=== PATIENT | male | born 1945 | race Caucasian/White ===

== ENCOUNTER 2022-02-13 08:26 | Day surgery (SDC) | payer OTHER, SELFPAY ==
[2022-02-13] VITALS (7 sets, daily range): BP systolic 138–162; BP diastolic 75–87; PULSE 50–70; RESP 16; TEMP 36.2–37; O2SAT 97–100; BMI 26.1
--- NOTE | 2022-02-13 | COLBX_PTH ---
PATIENT: VERONIQUE MOLINA LOC: EN U#:[id number] AGE/SX: 76/M ROOM: RE02/13/[address]: Dr. Basim Dominguez MD : 1945 BED: DIS: 02/13/2022 SPEC #: [id number] RECD: 02/13/22 11:52 STATUS: WILLIAMS PARRFrancisca #: [id number] JEFERSON: 02/13/22 00:[address]: Basim Dominguez DEPT: SURGICAL PATHOLOGY RECD BY: Christian Brock Tissues: Transverse colon Procedures: Surgery Specimen Level IV HEADER OPERATION: Colonoscopy (MAC), polypectomy PRE-OP DIAGNOSIS: History of colonic polyps TISSUE SUBMITTED: Transverse polyp MICROSCOPIC DIAGNOSIS Transverse colon polyp, polypectomy: Fragments of tubular adenoma. MADYSON:homero 02/14/2022 MICROSCOPIC DESCRIPTION Slides are reviewed. GROSS DESCRIPTION Received in fixative is one container labeled with the patient's name and designated transverse polyp. The specimen consists of multiple irregular fragments of light baez soft tissue that in aggregate measure 0.6 x 0.2 x 0.1 cm. The specimen is totally submitted in one cassette. / SJ:rg 02/13/2022 TC:1 CPT: 39805
[2022-02-13] MEDS: Lactated Ringers 1,000 ML 15 ML IV (09:22)
--- NOTE | 2022-02-13 10:20 | HP.PCM_ITS ---
History and Physical Date of Admission: 02/13/22 Date of Service:? 01/21/22 MR#: [id number] Acct: [id number] Name:VERONIQUE LOPEZ Rep #: [id number] : 1945 ? ? Provider: Dr. Basim Dominguez MD Age/Sex:? 76/M ? ? Location: [facility] Status: Signed Intake Vital Signs ? 01/21/2213:37 Height 5 ft 11 in Weight: 192 lb 8 oz BMI 26.8 BP 130/66 H Blood Pressure Location Rt brachial Position Sitting Respiration 17 Pulse 75 Pulse Source Monitor D Temp 97.6 F L Temp Source Temporal Pulse Oximetry (%) 96 Oxygen Delivery Method room air Intake Visit Reasons:?Family HX C-Scope every 3yrs Chief Complaint: Cscope every 3 years, family hx, hx polyps Inspector Filters Required: No Is patient in pain?: No Allergies menthol Allergy (Verified 01/21/22 13:39) unknown Medications hydrochlorothiazide 25 mg tablet 25 mg PO DAILY 01/21/22 [History Confirmed 01/21/22] sertraline 100 mg tablet 100 mg PO DAILY 01/21/22 [History Confirmed 01/21/22] simvastatin 40 mg tablet 40 mg PO DAILY 01/21/22 [History Confirmed 01/21/22] trazodone 100 mg tablet 100 mg PO DAILY 01/21/22 [History Confirmed 01/21/22] PFSH Family History?(Updated 01/21/22 @ 13:36 by Thursday) Mother Colon cancer Social History?(Updated 01/21/22 @ 13:36 by Carmen Thursday) Smoking Status:? Never smoker alcohol intake:? current details:? social substance use type:? does not use HPI HPI HPI: VERONIQUE MOLINA, is a 76 M who presents to the office today for need to schedule surveillance colonoscopy secondary to personal history of polyps and family history of colon cancer.? They are referred for surgical consultation from [facility] of the [place].? Patient has had prior colonoscopy.? His last colonoscopy was May 2019 where he was found to have 3 polyps including a ascending colon tubular adenoma.? He was also diagnosed with diverticulosis. They describe their bowel habits as normal.? They have approximately 1 per day and spend roughly 10-15 minutes on the toilet without significant straining.? They have not noticed recent bleeding or dark stools.? He has also not noticed any change in the caliber of his stools.? As above, patient has a family history of colon cancer in his mother.? He elaborates on this stating that she was diagnosed at 62 years of age and ultimately succumbed to this diagnosis at age 67.? There is no other awareness of diverticulitis or inflammatory bowel disease and patient's family history.? ? The patient's weight is stable following a weight loss from June 2020 to November 2020 which there was a 50 pound intentional weight loss (patient's describes patient being informed that he was borderline diabetic and decided to take action on this information). The patient is not prescribed anticoagulants/blood thinners. Relevant prior abdominal surgical history includes: Simultaneous umbilical and groin hernia repair.? Both patient and his spouse state that he had troubles with the anesthesia with this procedure.? His details this describing that he could not sit down for nearly 2 months and was constantly agitated.? However, subsequent sedation with colonoscopies has been uneventful. Briefly screening patient for any reflux disease, he denies any troubles with heartburn or acid reflux. ROS General General: No weight change, appetite, fatigue, colon cancer, breast cancer or weakness HEENT HEENT: Yes eye surgery; No difficulty swallowing, eye injury, swollen glands or hoarseness Endo Endocrine: No thyroid disease, diabetes mellitus, thyroid cancer, Hair loss, heat intolerance or cold intolerance Skin Skin: No rash or changing moles Musc Musculoskeletal: No back problems, arthritis, rheumatoid arthritis, gout or joint pain Cardio Cardiovascular: Yes high blood pressure; No murmur, pacemaker, heart disease, atrial fibrillation, heart attack, heart stent, palpitations, shortness of breat with exertion or chest pain Psych Psychiatric: No depression, anxiety or hearing voices Resp Respiratory: No shortness of breath, Yes sleep apnea, No cough, No COPD, No asthma, No emphysema and No wheezing Gastro Gastrointestinal: No abdominal pain, No nausea or vomiting, No diarrhea, No constipation, No blood in stool, No acid reflux, No hemorrhoids, No ulcers, No gallbladder problem and No black,tarry stools Chaim Hematologic: No blood thinners, No blood disorders, No bleeding, No anemia and No blood clots Neuro Neurologic: No system reviewed and no additional complaints, except as documented, No as per HPI, No abnormal gait, No abnormal hearing, No abnormal movements, No abnormal speech, No behavioral changes, No burning sensations, No confusion, No convulsions, No disequilibrium, No dizziness, No localized weakness, No frequent falls, No headache(s), No lack of coordination, No loss of vision, No memory loss, No numbness, No other visual disturbances, No radicular pain, No restless legs, No sensory deficit, No syncope, No tingling, No tremor(s), No weakness and No other Exam Const General: cooperative, healthy appearing, comfortable and no acute distress Orientation: alert, awake and oriented x3 Resp Effort & Inspection: normal respiratory effort Auscultation: no rales, no rhonchi and no wheezes Cardio Rate: regular rate Rhythm: regular rhythm GI Inspection: normal to inspection and no visible herniation Palpation: soft, no hepatosplenomegaly, no hernias and nontender Assessment and Plan Assessment and Plan (1) Personal history of colonic polyps: ?Status:?Acute ?Comment: Patient with personal history of adenomatous polyps.? 3 polyps were removed at his last scope in 2019.? He is due for surveillance colonoscopy next month.? He denies any interim change to his bowel habits since his last exam.? In addition, patient has a family history of colon cancer in his mother.? Given these indications, we will look to perform updated surveillance colonoscopy under local MAC at first mutual convenience.? Colonoscopy and required prep were described in detail and all questions were answered.? He notes that he [facility], but suggest he may be inclined to try our prep instead given the volume difference.? I have shared with him that I do not have a preference, and simply encouraged him to take one of the other just as prescribed. ?Plan: Plan will be to complete colonoscopy on first mutually available date under local MAC.? Pre-procedure prep discussed and paper instructions provided. (2) Family history of colon cancer in mother: ?Status:?Acute ?Comment: Patient with family history of colon cancer in his mother.? Diagnosis occurred after age 62.? However, as above, patient does have a personal history of coloni c polyps as well.? We will look to arrange for surveillance colonoscopy under local MAC at first mutually available date. I have re-examined the patient. There are no clinical changes since date of e gissell. He confirms that he completed his prep successfully and his output is now clear. He denies any questions related to today's procedure. Therefore we will proceed with surveillance colonoscopy under local MAC given personal history of polyps.
--- NOTE | 2022-02-13 11:16 | OP.CCLET_ITS ---
02/13/2022 Out Of [facility] Doctor Re : Colonoscopy procedure for Carlos Bansal Dear [facility] Doctor This procedure was performed on February. My impressions and recommendations are as follows: Impressions : - One 10 mm, non-bleeding polyp in the proximal transverse colon, removed with a hot snare. Resected and retrieved. - Diverticulosis in the sigmoid colon. No specimens collected. - The examination was otherwise normal on direct and retroflexion views. Recommendations : - Discharge patient to home (via wheelchair). - High fiber diet today. - Continue present medications. - Await pathology results. - Telephone my office for pathology results in 1 week. - No repeat colonoscopy due to age. My findings are described in the full procedure note, which is enclosed. If I can be of further assistance, please feel free to contact me at Doctor phone number(s): , Work: . Sincerely, Basim Dominguez MD 02/13/2022 11:15:53 AM This report has been signed electronically.
--- NOTE | 2022-02-13 11:16 | OP.COLON_ITS ---
Patient Name: Carlos Bansal Procedure Date: 02/13/2022 10:11 AM Date of : 1945 Age: 76 Procedure: Colonoscopy Indications: High risk colon cancer surveillance: Personal history of colonic polyps Providers: Basim Dominguez MD Medicines: See the Anesthesia note for documentation of the administered medications Patient Profile: Last Colonoscopy: 3 years ago. Complications: No immediate complications. Estimated blood loss: Minimal. Procedure: Pre-Anesthesia Assessment: - The heart rate, respiratory rate, oxygen saturations, blood pressure, adequacy of pulmonary ventilation, and response to care were monitored throughout the procedure. After I obtained informed consent, the scope was passed under direct vision. Throughout the procedure, the patient's blood pressure, pulse, and oxygen saturations were monitored continuously. The colonoscope was introduced through the anus and advanced to the cecum, identified by appendiceal orifice and ileocecal valve. The colonoscopy was performed without difficulty. The patient tolerated the procedure well. The quality of the bowel preparation was adequate. Scope In: 10:33:06 AM Scope Withdrawal Time 0 hours 22 minutes 0 seconds Scope Out: 11:06:46 AM Total Procedure Duration Time 0 hours 33 minutes 40 seconds Findings: A 10 mm, non-bleeding polyp was found in the proximal transverse colon. The polyp was semi-pedunculated. The polyp was removed with a hot snare. Resection and retrieval were complete. Estimated blood loss was minimal. Multiple small and large-mouthed diverticula were found in the sigmoid colon. No biopsies or other specimens were collected for this exam. The exam was otherwise without abnormality on direct and retroflexion views. Impression: - One 10 mm, non-bleeding polyp in the proximal transverse colon, removed with a hot snare. Resected and retrieved. - Diverticulosis in the sigmoid colon. No specimens collected. - The examination was otherwise normal on direct and retroflexion views. Recommendation: - Discharge patient to home (via wheelchair). - High fiber diet today. - Continue present medications. - Await pathology results. - Telephone my office for pathology results in 1 week. - No repeat colonoscopy due to age. Procedure Code(s): --- Professional --- 58484, Colonoscopy, flexible; with removal of tumor(s), polyp(s), or other lesion(s) by snare technique Diagnosis Code(s): --- Professional --- Z86.010, Personal history of colonic polyps D12.3, Benign neoplasm of transverse colon (hepatic flexure or splenic flexure) K57.30, Diverticulosis of large intestine without perforation or abscess without bleeding CPT copyright 2017 [employer]. All rights reserved. The codes documented in this report are preliminary and upon building superintendent review may be revised to meet current compliance requirements. Basim Dominguez MD 02/13/2022 11:15:53 AM This report has been signed electronically. Number of Addenda: 0 Note Initiated On: 02/13/2022 10:11 AM
== END 2022-02-13 12:08 | disposition home or self-care (01) ==
LOC: EN 08:30 → AC 08:32
PROVIDERS: Visit Provider Surgery
PROC: 0DJD8ZZ Inspection of Lower Intestinal Tract, Via Natural or Artificial Opening Endoscopic (ICD-10-PCS; CPT 45378; principal; 2022-02-13 09:55)
DX: Z12.11 Encounter for screening for malignant neoplasm of colon (principal); D12.3 Benign neoplasm of transverse colon; K57.30 Diverticulosis of large intestine without perforation or abscess without bleeding; G47.30 Sleep apnea, unspecified; F41.9 Anxiety disorder, unspecified; I10 Essential (primary) hypertension; E78.00 Pure hypercholesterolemia, unspecified; Z86.010 Personal history of colon polyps; Z79.899 Other long term (current) drug therapy; Z80.0 Family history of malignant neoplasm of digestive organs
CPT/HCPCS: 45385; 88305; J7120; J0153; J2405